=== PATIENT | female | born 1935 | race Caucasian/White ===

== ENCOUNTER 2017-10-29 07:50 | Observation (INO) | payer MEDICARE, OTHER ==
--- NOTE | 2017-10-24 18:04 | MH ---
cc: Clayton Reilly MD DATE OF ADMISSION: 10/29/2017 DATE OF ADMISSION FOR SURGERY: 10/29/2017 ADMITTING DIAGNOSIS: Osteoarthritic degeneration, right knee, now being admitted for right total knee arthroplasty. 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 PAST MEDICAL HISTORY: The patient has a history of atrial fibrillation and flutter and currently takes metoprolol tartrate and lovastatin. PAST SURGICAL HISTORY: Anterior wall repair and radical hysterectomy. REVIEW OF SYSTEMS: Noncontributory. FAMILY HISTORY: Noncontributory. She does not smoke. Drinks alcohol occasionally. ALLERGIES: ALLERGIC TO DEMEROL. PHYSICAL EXAMINATION: GENERAL: I find an 82-year-old female well-developed, well-nourished, ____, complaining of pain in her right knee. VITAL SIGNS: Blood pressure 142/76, pulse 68 and regular, respirations 16, temperature 97.8, pulse oximetry 98 percent on room air. HEENT: Eyes, PERRL, EOMI. Ears, nose, mouth clear. NECK: Supple. LUNGS: Clear. HEART: Regular rate. ABDOMEN: Soft, positive bowel sounds, nontender. EXTREMITIES: Reveal the right knee to be tender with crepitance throughout range of motion. Neurovascularly intact to her toes. IMPRESSION: Severe painful osteoarthritic degeneration, right knee. PLAN: Admission for a right total knee arthroplasty today. She was given a prescription for postoperative pain control in the office. J. MD ROSALIO Lee/SALENA/ , 05:34 PM , 05:49 PM
[~2017-10-29 07:50] MED LIST: ASPI-183 PO; ASPI81TA23 PO; LOVA20TA PO; METO25TA3 PO; MULT1CHW33 PO; PROBCAP28 PO
[2017-10-29] MEDS ORDERED: CHLORHEXIDINE GLUCONATE 4% SOLN 120 ML BTL TOPICAL SCH (08:45)
[2017-10-29] MEDS ORDERED: VANCOMYCIN 1000 MG/NS 250 ML (for <70 kg) IV SCH ×2 (08:45)
[2017-10-29] MEDS ORDERED: DEXAMETHASONE SOD PHOS 20 MG/5 ML VIAL IV PUSH SCH (08:45)
[2017-10-29] MEDS ORDERED: ceFAZolin 2 GM PREMIX 50 ML IV SCH (08:45)
[2017-10-29] MEDS ORDERED: METOPROLOL TARTRATE 25 MG TAB PO PRN (09:00)
[2017-10-29] MEDS ORDERED: POVIDONE IODINE 5% (ANTISEPSIS KIT) 4 APPLICATIONS EACH NARE PRN (09:00)
[2017-10-29] MEDS ORDERED: SODIUM CHLORIDE 0.9% IV SCH ×2 (09:00→12:00)
[2017-10-29] MEDS ORDERED: LACTATED RINGER'S 1000 ML IV PRN (09:00)
[2017-10-29] MEDS ORDERED: CHLORHEXIDINE GLUCONATE 2 % 1 PACK (2 CLOTHS) TOPICAL PRN (09:00)
[2017-10-29] MEDS ORDERED: SODIUM CHLORID 0.9% 500 ML IV PRN (09:00)
[2017-10-29] MEDS ORDERED: BUPIVACAINE LIPOSO PF 1.3% INJ 20 ML, BUPIVACAINE PF 0.25% INJ 20 ML in SODIUM CHLORIDE... P-ARTICULR SCH (09:00)
[2017-10-29] MEDS ORDERED: TRANEXAMIC ACID IV SCH ×2 (09:00→12:00)
[2017-10-29 09:23] VITALS: PULSE 60
[2017-10-29] MEDS ORDERED: ceFAZolin INJ 1,000 MG VIAL ONE (09:51)
--- NOTE | 2017-10-29 10:36 | HHI.FF ---
Face to Face Verification Diagnosis: (1) Status post total right knee replacement Physical Therapy Gait training Knee: Total knee, Protocol: Right, Gait training, Full weight bearing Canvas Knee Splint: When in bed & 2 pillows btw thighs Nursing RN: 3 days/week x 2 weeks Dressing Changes: Do not change dressing I have seen patient Kathy Joyner on 10/29/17. My clinical findings support the need for the requested home health care services because: Limited ability to care for self High risk of falls I certify that my clinical findings support that this patient is homebound because: Unsteady gait/balance Clayton Reilly MD Oct 29, 2017 10:36
[2017-10-29] MEDS ORDERED: WALKER WHEELS/F1 MIS (10:38)
[2017-10-29] MEDS ORDERED: CPMMACHINE (10:39)
[2017-10-29] MEDS ORDERED: ADJUSTABLE COMM1 MIS (10:39)
[2017-10-29] MEDS ORDERED: MIDAZOLAM HCL 2 MG/2 ML VIAL ONE (10:40)
[2017-10-29] MEDS ORDERED: BUPIVACAINE LIPOSOME PF 1.3% 20 ML VIAL ONE (10:41)
[2017-10-29] MEDS ORDERED: NALOXONE HCL 0.4 MG/ML AMP IV PUSH PRN ×2 (10:45)
[2017-10-29] MEDS ORDERED: Post-op Orders (for Pharmacy) XX ONE (10:45)
[2017-10-29] MEDS ORDERED: diphenhydrAMINE HCL 50 MG/ML VIAL IV PUSH PRN (10:45)
[2017-10-29] MEDS ORDERED: TRANEXAMIC ACID INJ 0 MG in SODIUM CHLORIDE 0.9% INJ 100 ML IV SCH (10:45)
[2017-10-29] MEDS ORDERED: ACETAMINOPHEN 325 MG TAB PO PRN (10:45)
[2017-10-29] MEDS ORDERED: ONDANSETRON ODT 4 MG TAB PO PRN (10:45)
[2017-10-29] MEDS ORDERED: MORPHINE SULFATE 4 MG/ML INJ IV PUSH PRN (10:45)
[2017-10-29] MEDS ORDERED: ACETAMINOPHEN 1000 MG/100 ML 100 ML IV ONE (10:45)
[2017-10-29] MEDS ORDERED: GLYCOPYRROLATE 1 MG/5 ML SYRINGE IV PUSH ONE (12:00)
[2017-10-29] MEDS ORDERED: ONDANSETRON HCL 4 MG/2 ML VIAL IV PUSH ONE (12:00)
[2017-10-29] MEDS ORDERED: NEOSTIGMINE 5 MG/5 ML SYRINGE IV PUSH ONE (12:00)
[2017-10-29] MEDS ORDERED: ROCURONIUM INJ 50 MG/5 ML SYRINGE IV PUSH ONE (12:00)
[2017-10-29] MEDS ORDERED: LACTATED RINGER'S 1000 ML INJ 1,000 ML IV ONE (12:00)
[2017-10-29] MEDS ORDERED: PHENYLEPH/NS 1000 MCG/10 ML SYR IV ONE (12:00)
[2017-10-29] MEDS ORDERED: ePHEDrine/NS 25 MG/5 ML SYRINGE IV ONE (12:00)
[2017-10-29] MEDS ORDERED: PROPOFOL 200 MG/20 ML AMP IV ONE (12:00)
[2017-10-29] MEDS ORDERED: LIDOCAINE HCL 1% PF 5 ML SYRINGE OTHER ONE (12:00)
--- NOTE | 2017-10-29 13:54 | HHI.PR ---
Immediate Post Op Note Procedure Date: Oct 29, 2017 Pre Op Diagnosis: Osteoarthritic degeneration, right knee Post Op Diagnosis: Osteoarthritic degeneration, right knee Surgeon: Clayton Reilly MD Wardrobe Consultant(s): Aleida RENDON Procedure: Right Total Knee Arthroplasty Complications: none Estimated blood loss: 100cc Anesthesia: General Drains: None IVF Urinary Output (mLs): 0 (no sharpe) Tourniquet time (min at mmHg) 41 mins at 300mmHg Patient to: SDS Patient Condition: Good Implant/Devices: SEE IMPLANT LOG (if applicable) Date/Time of Procedure: SEE SURGICAL CARE RECORD Aleida Brooks Oct 29, 2017 13:54
[2017-10-29] MEDS ORDERED: DO NOT ADM ANY ANTICOAGULANT DRUGS PRN (13:57)
[2017-10-29] MEDS: LACTATED RINGER'S 1000 ML INJ 1,000 ML IV SCH (14:05)
[2017-10-29] MEDS ORDERED: *morphine SULFATE 4 MG/ML PERIprocedure ONLY ONE (14:10)
--- NOTE | 2017-10-29 14:42 | RADRPT ---
EXAM DATE: 10/29/2017 2:35 PM EDT AGE/SEX: 82 years / Female INDICATIONS: Post op total right knee CLINICAL DATA: This is the patient's initial encounter. Patient reports that signs and symptoms have been present for 1 day and indicates a pain score of Nonresponsive. MEDICAL/SURGICAL HISTORY: Non-responsive. . right knee COMPARISON: No prior exams available for comparison. FINDINGS: The patient is status post total knee replacement. The prosthetic components appear well placed. Ther e are some hypertrophic change at the anterior superior aspect of the patella. CONCLUSION: Good placement of a total knee prosthesis. Electronically signed by: Glenn Valente MD 10/29/2017 2:40 PM EDT
--- NOTE | 2017-10-29 14:50 | MP ---
cc: Clayton Reilly MD DATE OF OPERATION: 10/29/2017 DATE OF SURGERY: 10/29/2017. PREOPERATIVE DIAGNOSIS: Osteoarthritic degeneration, right knee. POSTOPERATIVE DIAGNOSIS: Osteoarthritic degeneration, right knee. PROCEDURE PERFORMED: Right total knee arthroplasty using Consensus components, size 3 femur, 2 tibia, 2 patella with a size 10 insert and 2 batches of DePuy cement. SURGEON: Dr. Melba MD ENVIRONMENTAL COORDINATOR: JUSTICE Montero. ANESTHESIA: General intubation and block. PROCEDURE: After successful induction of anesthesia, the patient is placed on the operating room table in the supine position. The knee is prepped and draped in the usual manner. A tourniquet is inflated at the upper thigh and set to 300 mmHg pressure after exsanguination of the lower extremity. A longitudinal incision is made extending from 3 inches proximal to the superior pole of the patella, across the patella in longitudinal fashion, and down past the insertion of the tibial tubercle into the proximal tibia. The incision is carried down through subcutaneous tissue along the medial aspect of the patella and retinaculum, down through the capsule to expose the knee joint. The patella and patellar tendon are freed up enough to allow the patella to be inverted and retracted off the lateral side of the knee joint. The knee joint is left exposed. Small osteophytes are removed. All soft tissue is removed to allow proper position of the femoral and tibial cutting jig guide. The first femoral jig is then inserted along the distal end of the femur after first measuring to decide whether this is a small, medium, or large component. The notch is then drilled and the tibial cutting guide inserted into the femoral cutting guide, along with the ankle brace to allow for proper measurement of the tibial cutting surface that needed to be resected. Pins are inserted into the tibial cutting jig and femoral cutting jig to hold them in place. An oscillating saw is then used to resect the surface of the tibia. The surface of the tibia is then completely removed using sharp and blunt dissection. The anterior and posterior cuts of the femur are then made as well using an oscillating saw through the cutting guide. All guides are then removed and the varus/valgus angulation cutting guide applied to the femur for proper measurement of the proper amount of valgus. The anterior cutting guide for the femur is then inserted at the anterior femoral cuts made. Next, the first block trial is inserted into the femur to allow for proper condyle drill holes to be made which are then made followed by removal of the bone between the condyles using an oscillating saw as well as the bone removed at the most posterior surface of the condyle. After this, this guide is removed and the chamfer cuts made using the chamfer cutting guide from both anterior and posterior. Next, the femoral trial is then inserted, the tibial surface reflected anterior to expose the tibial surface and a tibial stem guide is inserted after first measuring for a standard, standard plus, large, or large plus surface to be used. After the stem is impacted the trial tibial surface is applied followed by the trial meniscal components. After full range of motion is found with the appropriate length meniscal components varying the patella is prepared by resecting the posterior aspect of the patella using an oscillating saw, inserting a trial. The trial is then removed and the cruciate cutting guide applied using the bur to cut the cruciate cuts. After cruciate cuts are made all trials are removed. The wound is irrigated copiously with antibiotic solution and Water Pik and the actual components inserted into place using the aforementioned components, Consensus components, size 3 femur, 2 tibia, 2 patella with a size 10 insert and 2 batches of DePuy cement. After the cement has hardened and the components are found to have full range of motion with no instability, the tourniquet is deflated, total tourniquet time being 41 minutes at 300 mmHg pressure. Meticulous hemostasis achieved. The wound was irrigated copiously with antibiotic solution and 120 cc of a mixture of Exparel, normal saline and 0.25% Marcaine plain was inserted around the knee joint for extra pain control. The deep fascia was approximated with running #2 Quill and the subcutaneous tissue approximated using interrupted 3-0 Quill and 4-0 Monocryl followed by Prineo dressing, sterile dressing and knee immobilizer. No drain utilized. ESTIMATED BLOOD LOSS: 100 mL. COUNTS: Sponge and suture counts were correct. COMPONENTS UTILIZED: Consensus components, size 3 femur, 2 tibia, 2 patella with a size 10 insert and 2 batches of DePuy cement. The patient tolerated the procedure well and left the Operating Room in satisfactory condition. ADDENDUM: JUSTICE Montero, was present during the entire procedure to include patient positioning and the procedure. The medical necessity of a nurse practitioner and the director of first impressions was indicated in this case due to the surgical complexity of the case itself. During the surgical case, the medical or surgical instrument maker was working the back table while my surgical technologist JUSTICE was directly assisting me. J. MD ROSALIO Lee/BELLA , 01:31 PM , 02:49 PM
--- NOTE | 2017-10-29 15:07 | PD.CONS ---
HPI Service [facility] Hospitalists Consult Requested By Dr. Reilly - Orthopedic service Reason for Consult Assist with ongoing medical management Primary Care Physician Antoine Woodward Do, MD Diagnoses: History of Present Illness Written by Aruna Dennis, acting as scribe for Dr. Cheung on 10/29/17 at 14: 55. This is an 82-year-old female with past medical history significant for atrial fibrillation/flutter, dyslipidemia and severe osteoarthritis of the right knee who has tried and failed numerous attempts at conservative management of her right knee pain and underwent an elective left total knee replacement surgery performed by Dr. Reilly. Hospitalist services have been consulted for assistance with ongoing medical management. Patient seen and examined in PACU. At present, patient is crying and upset saying that her right knee still feels the same as before surgery. She also complains of having a dry mouth. She states she has been in her usual state of health prior to the surgery. She denies any recent illness, fever or chills. She denies any chest pain or shortness of breath. She denies any nausea, vomiting or abdominal pain. She denies any urinary difficulties, diarrhea or constipation. Review of Systems Except as stated in HPI: all other systems reviewed are Neg Past Family Social History Allergies: Coded Allergies: erythromycin base (Verified Allergy, Unknown, FAINT, WEAKNESS, 10/29/17) meperidine (Verified Adverse Reaction, Intermediate, CONFUSION, 10/29/17) Past Medical History Atrial fibrillation/flutter Dyslipidemia Severe osteoarthritis right knee Past Surgical History Tonsillectomy Anterior wall repair and radical hysterectomy Reported Medications Multi Adult Gummies (Multiple Vitamins W/ Minerals) 200 Mcg Chw 2 Chew PO DAILY Probiotic Daily (Probiotic Product) 5 Billion Cell Cap 1 Cap PO DAILY Lovastatin 20 Mg Tab 20 Mg PO HS Aspirin EC (Aspirin) 81 Mg Tabdr 81 Mg PO DAILY HOLD FOR SURGERY Aspirin 325 Mg Tab 325 Mg PO DAILY TAPER TO 81 MG THEN OFF BOTH FOR SURGERY Metoprolol Tartrate 25 Mg Tab 12.5 Mg PO BID Active Ordered Medications Current Medications Medications (Trade) Dose Ordered Sig/Ladarius Route Start Time Stop Time Status Last Admin (Hibiclens 4% Top Soln) 1 applic ONCE TOPICAL 10/29/17 08:45 11/01/17 08:44 10/29/17 08:45 (Decadron Inj) 10 mg DEPUTY COMMISSIONER IV PUSH 10/29/17 08:45 10/29/17 09:10 Cefazolin Sodium/ Dextrose 50 ml @ 100 mls/hr DEPUTY COMMISSIONER IV 10/29/17 08:45 11/01/17 08:44 10/29/17 11:55 Vancomycin HCl 1000 mg/Sodium Chloride 250 ml @ 250 mls/hr DEPUTY COMMISSIONER IV 10/29/17 08:45 11/01/17 08:44 10/29/17 09:37 Tranexamic Acid 658 mg/Sodium Chloride 106.58 ml @ 200 mls/ hr ONCE IV 10/29/17 09:00 10/29/17 15:00 10/29/17 11:55 Tranexamic Acid 658 mg/Sodium Chloride 106.58 ml @ 200 mls/ hr ONCE IV 10/29/17 12:00 10/29/17 16:00 10/29/17 14:18 Bupivacaine Liposome 20 ml/ Bupivacaine HCl 20 ml/Sodium Chloride 120 ml @ 240 mls/hr ONCE P-ARTICULR 10/29/17 09:00 10/29/17 15:00 Lactated Ringer's 1,000 ml @ 30 mls/hr Q24H PRN IV 10/29/17 09:00 11/01/17 08:59 10/29/17 08:45 Sodium Chloride 500 ml @ 30 mls/hr [id number] PRN IV 10/29/17 09:00 11/01/17 08:59 (Lopressor) 25 mg DEPUTY COMMISSIONER PRN PO 10/29/17 09:00 11/01/17 08:59 (Betadine 5% Antisepsis Kit) 1 applic DEPUTY COMMISSIONER PRN EACH NARE 10/29/17 09:00 11/01/17 08:59 10/29/17 08:45 (Chlorhexidine 2% Cloth) 3 pack DEPUTY COMMISSIONER PRN TOPICAL 10/29/17 09:00 11/01/17 08:59 10/29/17 08:35 Lactated Ringer's 1,000 ml @ 80 mls/hr [id number] IV 10/29/17 10:31 10/29/17 14:05 Cefazolin Sodium 1000 mg/Sodium Chloride 100 ml @ 200 mls/hr Q6H IV 10/29/17 10:45 10/29/17 23:14 UNV (Wheeler 7.5-325 Mg) 1 tab Q4H PRN PO 10/29/17 10:45 (Wheeler 7.5-325 Mg) 2 tab Q4H PRN PO 10/29/17 10:45 (Tylenol) 650 mg Q6H PRN PO 10/29/17 10:45 (Theragran M Tab) 1 tab BID PO 10/30/17 21:00 12/29/17 20:59 (Zofran Odt) 4 mg Q6H PRN PO 10/29/17 10:45 (Colace) 100 mg BID PO 10/30/17 21:00 (Restoril) 15 mg HS PRN PO 10/29/17 21:00 (Bacitracin Oint Packet) 0.9 gm UNSCH X1 PRN TOP 10/31/17 10:15 11/02/17 10:14 (Narcan Inj) 0.4 mg UNSCH PRN IV PUSH 10/29/17 10:45 (Benadryl Inj) 25 mg Q6H PRN IV PUSH 10/29/17 10:45 (Eliquis) 2.5 mg BID PO 10/29/17 21:00 UNV (Morphine Inj) 2 mg Q3H PRN IV PUSH 10/29/17 10:45 Family History Mother, CVA Social History Patient has remote history of tobacco use in her 30s. She reports rare alcohol consumption. She denies any illicit drug use Physical Exam Vital Signs Vital Signs Date Time Temp Pulse Resp B/P (MAP) Pulse Ox O2 Delivery O2 Flow Rate FiO2 10/29/17 14:09 Nasal Cannula 3 10/29/17 14:00 63 12 145/74 (97) 99 Simple Mask 6 10/29/17 13:53 97.0 66 15 143/65 (91) 98 Simple Mask 6 10/29/17 09:23 60 10/29/17 09:23 98 Nasal Cannula 2 10/29/17 08:15 98.6 60 16 154/72 (99) 99 Physical Exam GENERAL: This is a well-nourished, well-developed female patient, in no apparent distress. Somnolent. Oriented x 3. SKIN: No rashes, ecchymoses or lesions. Cool and dry. HEAD: Atraumatic. Normocephalic. No temporal or scalp tenderness. EYES: Pupils equal round and reactive. Extraocular motions intact. No scleral icterus. No injection or drainage. ENT: Nose without bleeding or purulent drainage. Throat without erythema, tonsillar hypertrophy or exudate. Uvula midline. Airway patent. NECK: Trachea midline. No lymphadenopathy. Supple, nontender, no meningeal signs. CARDIOVASCULAR: Regular rate and rhythm without murmurs, gallops, or rubs. RESPIRATORY: Clear to auscultation. Breath sounds equal bilaterally. No wheezes , rales, or rhonchi. GASTROINTESTINAL: Abdomen soft, non-tender, nondistended. No hepato-splenomegaly , or palpable masses. No guarding. MUSCULOSKELETAL: Extremities without clubbing, cyanosis, or edema. No calf tenderness. Right knee in postop dressing, C/D/I, RLE currently in CPM. NEUROLOGICAL: Awake and alert. Cranial nerves II through XII grossly intact. Motor and sensory grossly within normal limits. No focal neurologic findings appreciated. Normal speech. Imaging Last Impressions Knee X-Ray 10/29/17 1031 Signed Impressions: CONCLUSION: Good placement of a total knee prosthesis. Assessment and Plan Assessment and Plan 82-year-old female with past medical history significant for atrial fibrillation /flutter, dyslipidemia and severe osteoarthritis of the right knee who has tried and failed numerous attempts at conservative management of her right knee pain and underwent an elective left total knee replacement surgery performed by Dr. Reilly. Hospitalist services have been consulted for assistance with ongoing medical management. Severe OA right knee, failed multiple attempts at conservative therapy, status post elective right total knee placement surgery -Management per orthopedic team -Pain management with bowel regimen -Monitor CBC for postoperative anemia of acute blood loss -Monitor wound healing -PT eval/tx per ortho service Atrial fibrillation, rate controlled Patient on aspirin only as anticoagulation at home -Continue patient on home dose of metoprolol 12.5 mg twice daily -Continue to monitor heart rate Dyslipidemia -Continue patient on statin therapy DVT prophylaxis -Eliquis 2.5 mg twice daily per Ortho Thank you very kindly for this consultation. We will continue to follow patient along with you. Discussed Condition With patient, nursing staff This note was transcribed by julia Dennis. I, Dr. Manuel Cheung personally performed the history, physical exam, and medical decision making; and confirmed the accuracy of the information in the transcribed note. Authenticated by Dr. Manuel Cheung on 10/29/17 at 15:22. Aruna Dennis Oct 29, 2017 15:07 Manuel Cheung MD Oct 29, 2017 15:23
[2017-10-29] MEDS ORDERED: PILL SPLITTER OTHER PRN (15:15)
[2017-10-29 20:00] VITALS: BP 136/64; PULSE 70; RESP 16; TEMP 97.8; O2SAT 99
[2017-10-29] MEDS: METOPROLOL TARTRATE 25 MG TAB PO SCH (20:56)
[2017-10-29] MEDS: PRAVASTATIN SOD 20 MG TAB PO SCH (20:57)
[2017-10-29] MEDS ORDERED: TEMAZEPAM 15 MG CAP PO PRN (21:00)
--- NOTE | 2017-10-29 22:55 | EKG ---
Date Performed: 10/29/2017 Time Performed: 08:44:21 PTAGE: 82 years EKG: SINUS BRADYCARDIA BORDERLINE ECG PREVIOUS TRACING : 02/07/2015 15.30 DOCTOR: Vikki Melgar Interpretating Date/Time 10/29/2017 22:51:55
[2017-10-30] VITALS (7 sets, daily range): BP systolic 48–153; BP diastolic 53–91; PULSE 56–103; RESP 16–17; TEMP 97.6–98.5; O2SAT 93–98
[2017-10-30] MEDS: ACETAMINOPHEN/HYDROcodone 325 MG/7.5 MG TAB PO PRN ×3 (04:01→22:17)
[2017-10-30 05:16] LABS: HEMATOCRIT 30.4 % (35.0-46.0); HEMOGLOBIN 10.1 GM/DL (11.6-15.3)
[2017-10-30 05:43] LABS: BICARBONATE 27.1 MEQ/L (21.0-32.0); CALCIUM 8.3 MG/DL (8.5-10.1); CREATININE 0.68 MG/DL (0.50-1.00)
[2017-10-30] MEDS: METOPROLOL TARTRATE 25 MG TAB PO SCH ×2 (08:47→20:16)
--- NOTE | 2017-10-30 10:59 | PD.ORT.PN ---
Subjective Subjective Remarks Pt feeling groggy today from pain meds. Objective Vitals Vital Signs Date Time Temp Pulse Resp B/P (MAP) Pulse Ox O2 Delivery O2 Flow Rate FiO2 10/30/17 04:45 98.5 70 16 114/53 (73) 94 10/30/17 00:10 97.6 72 16 123/55 (77) 96 10/29/17 20:00 97.8 70 16 136/64 (88) 99 10/29/17 19:34 97.3 96 Room Air 10/29/17 19:07 71 19 155/55 (88) 95 Room Air 10/29/17 17:30 69 20 148/63 (91) 98 Nasal Cannula 2 10/29/17 16:00 64 22 139/64 (89) 99 Nasal Cannula 2 10/29/17 15:00 57 19 122/57 (78) 97 Nasal Cannula 2 10/29/17 14:30 78 22 149/70 (96) 99 Nasal Cannula 3 10/29/17 14:15 67 17 137/60 (85) 98 Nasal Cannula 3 10/29/17 14:09 Nasal Cannula 3 10/29/17 14:00 63 12 145/74 (97) 99 Simple Mask 6 10/29/17 13:53 97.0 66 15 143/65 (91) 98 Simple Mask 6 I/O 10/29/17 10/29/17 10/29/17 10/30/17 10/30/17 10/30/17 07:00 15:00 23:00 07:00 15:00 23:00 Intake Total 140 ml 120 ml 720 ml 100 ml Output Total 100 ml Balance 40 ml 120 ml 720 ml 100 ml Intake Oral 120 ml 720 ml IV Total 100 ml Other 140 ml Output Estimated Blood Loss 100 ml # Voids 1 1 3 # Bowel Movements 0 Result Diagram: 10/30/17 0500 10/30/17 0500 Imaging Last 48 hours Impressions Knee X-Ray 10/29/17 1031 Signed Impressions: CONCLUSION: Good placement of a total knee prosthesis. Objective Remarks Sitting up in chair. Dressing dry and intact. NV intact to toes. No calf tenderness. Assessment & Plan Ortho Post Op Day #: 1 Problem List: Assessment and Plan PT, decrease amount of pain meds. Outside dressing change. Home possibly tomorrow. Clayton Reilly MD Oct 30, 2017 10:59
[2017-10-30] MEDS: LACTATED RINGER'S 1000 ML INJ 1,000 ML IV SCH (11:31)
--- NOTE | 2017-10-30 12:08 | HHI.PR ---
Subjective Remarks Follow-up for right TKA, Sesar fib. Patient reports feeling well today. She states her pain is fairly well controlled this morning. Denies any fever/chills , chest pain, palpitations, shortness of breath, abdominal pain, nausea/vomiting , or constipation. She complains of a sore throat and dry mouth from intubation. She has no other medical complaints at this time. Vital signs reviewed and stable. Objective Vitals Vital Signs Date Time Temp Pulse Resp B/P (MAP) Pulse Ox O2 Delivery O2 Flow Rate FiO2 10/30/17 11:08 56 110/53 (72) 10/30/17 08:00 98.5 63 16 48/ 98 10/30/17 04:45 98.5 70 16 114/53 (73) 94 10/30/17 00:10 97.6 72 16 123/55 (77) 96 10/29/17 20:00 97.8 70 16 136/64 (88) 99 10/29/17 19:34 97.3 96 Room Air 10/29/17 19:07 71 19 155/55 (88) 95 Room Air 10/29/17 17:30 69 20 148/63 (91) 98 Nasal Cannula 2 10/29/17 16:00 64 22 139/64 (89) 99 Nasal Cannula 2 10/29/17 15:00 57 19 122/57 (78) 97 Nasal Cannula 2 10/29/17 14:30 78 22 149/70 (96) 99 Nasal Cannula 3 10/29/17 14:15 67 17 137/60 (85) 98 Nasal Cannula 3 10/29/17 14:09 Nasal Cannula 3 10/29/17 14:00 63 12 145/74 (97) 99 Simple Mask 6 10/29/17 13:53 97.0 66 15 143/65 (91) 98 Simple Mask 6 I/O 10/29/17 10/29/17 10/29/17 10/30/17 10/30/17 10/30/17 07:00 15:00 23:00 07:00 15:00 23:00 Intake Total 140 ml 120 ml 720 ml 100 ml Output Total 100 ml Balance 40 ml 120 ml 720 ml 100 ml Intake Oral 120 ml 720 ml IV Total 100 ml Other 140 ml Output Estimated Blood Loss 100 ml # Voids 1 1 3 # Bowel Movements 0 Result Diagram: 10/30/17 0500 10/30/17 0500 Imaging Last Impressions Knee X-Ray 10/29/17 1031 Signed Impressions: CONCLUSION: Good placement of a total knee prosthesis. Objective Remarks GENERAL: Well-nourished, well-developed pleasant elderly female patient in [facility]. SKIN: Warm and dry. No rash. HEENT: Normocephalic. Atraumatic. Pupils equal and round. Mucous membranes pink and moist. CARDIOVASCULAR: Regular rate and rhythm. No murmur appreciated. RESPIRATORY: No accessory muscle use. Clear to auscultation. Breath sounds equal bilaterally. GASTROINTESTINAL: Abdomen soft, non-tender, nondistended. Normoactive bowel sounds x4. MUSCULOSKELETAL: No obvious deformities. Extremities without clubbing, cyanosis , or edema. RLE in surgical dressing, CDI. NEUROLOGICAL: Awake and alert. No obvious cranial nerve deficits. Motor grossly within normal limits. Moving all extremities spontaneously. Normal speech. PSYCHIATRIC: Appropriate mood and affect; insight and judgment normal. Procedures 10/29/17 -right total knee arthroplasty by Dr. Reilly Medications and IVs Current Medications Medications (Trade) Dose Ordered Sig/Ladarius Route Start Time Stop Time Status Last Admin (Hibiclens 4% Top Soln) 1 applic ONCE TOPICAL 10/29/17 08:45 11/01/17 08:44 10/29/17 08:45 (Decadron Inj) 10 mg PHOTONICS ENGINEERING TECHNICIAN IV PUSH 10/29/17 08:45 10/29/17 09:10 Cefazolin Sodium/ Dextrose 50 ml @ 100 mls/hr PHOTONICS ENGINEERING TECHNICIAN IV 10/29/17 08:45 11/01/17 08:44 10/29/17 11:55 Vancomycin HCl 1000 mg/Sodium Chloride 250 ml @ 250 mls/hr PHOTONICS ENGINEERING TECHNICIAN IV 10/29/17 08:45 11/01/17 08:44 10/29/17 09:37 Lactated Ringer's 1,000 ml @ 30 mls/hr Q24H PRN IV 10/29/17 09:00 11/01/17 08:59 10/29/17 08:45 Sodium Chloride 500 ml @ 30 mls/hr [id number] PRN IV 10/29/17 09:00 11/01/17 08:59 (Lopressor) 25 mg PHOTONICS ENGINEERING TECHNICIAN PRN PO 10/29/17 09:00 11/01/17 08:59 (Betadine 5% Antisepsis Kit) 1 applic PHOTONICS ENGINEERING TECHNICIAN PRN EACH NARE 10/29/17 09:00 11/01/17 08:59 10/29/17 08:45 (Chlorhexidine 2% Cloth) 3 pack PHOTONICS ENGINEERING TECHNICIAN PRN TOPICAL 10/29/17 09:00 11/01/17 08:59 10/29/17 08:35 Lactated Ringer's 1,000 ml @ 80 mls/hr [id number] IV 10/29/17 10:31 10/29/17 14:05 (Braham 7.5-325 Mg) 1 tab Q4H PRN PO 10/29/17 10:45 (Braham 7.5-325 Mg) 2 tab Q4H PRN PO 10/29/17 10:45 10/30/17 08:31 (Tylenol) 650 mg Q6H PRN PO 10/29/17 10:45 (Theragran M Tab) 1 tab BID PO 10/30/17 21:00 12/29/17 20:59 (Zofran Odt) 4 mg Q6H PRN PO 10/29/17 10:45 (Colace) 100 mg BID PO 10/30/17 21:00 (Restoril) 15 mg HS PRN PO 10/29/17 21:00 (Bacitracin Oint Packet) 0.9 gm UNSCH X1 PRN TOP 10/31/17 10:15 11/02/17 10:14 (Narcan Inj) 0.4 mg UNSCH PRN IV PUSH 10/29/17 10:45 (Benadryl Inj) 25 mg Q6H PRN IV PUSH 10/29/17 10:45 (Eliquis) 2.5 mg Q12H PO 10/30/17 13:00 (Morphine Inj) 2 mg Q3H PRN IV PUSH 10/29/17 10:45 ([facility] Nursing Information) ALL NURSING DEPARTME... UNSCH PRN .XX 10/29/17 13:57 10/30/17 13:56 (Pravachol) 20 mg HS PO 10/29/17 21:00 10/29/17 20:57 (Lopressor) 12.5 mg BID PO 10/29/17 21:00 10/30/17 08:47 (Pill Splitter) 1 ea UNSCH PRN OTHER 10/29/17 15:15 A/P Assessment and Plan 82-year-old female with history of atrial fibrillation/flutter, dyslipidemia, and severe osteoarthritis of the right knee who has tried and failed numerous attempts at conservative management of her right knee pain and underwent an elective left total knee replacement surgery performed by Dr. Reilly. Hospitalist services have been consulted for assistance with ongoing medical management. Severe Osteoarthritis R Knee, s/p Right TKA: surgery done 10/29/[address] Reilly -Continue management per orthopedic team -Pain control with norco prn, IV morphine prn -Post op Hgb 10.1, stable -PT eval, recommending [facility] -DVT prophylaxis with Eliquis per orthopedics Atrial fibrillation: chronic, rate controlled -Patient on aspirin only as anticoagulation at home; now on Eliquis for DVT prophylaxis per ortho -Continue patient on home dose of metoprolol 12.5 mg twice daily -Stable -Outpatient f/up with room service manager Dr. Powell Dyslipidemia -Continue patient on statin therapy DVT prophylaxis -Eliquis 2.5 mg bid per Ortho Discharge Planning Likely plan for d/c tomorrow with [facility]. Pam Coffman PA-C Oct 30, 2017 12:08
[2017-10-30] MEDS: APIXABAN 2.5 MG TABLET PO SCH (14:03)
[2017-10-30] MEDS: PRAVASTATIN SOD 20 MG TAB PO SCH (20:16)
[2017-10-30] MEDS: MULTIVITAMINS/MINERALS THERAPEUTIC TAB PO SCH (20:16)
[2017-10-30] MEDS: DOCUSATE SODIUM 100 MG CAP PO SCH (20:16)
[2017-10-31] MEDS: LACTATED RINGER'S 1000 ML INJ 1,000 ML IV SCH (00:01)
[2017-10-31] MEDS: APIXABAN 2.5 MG TABLET PO SCH (00:21)
[2017-10-31 00:25] VITALS: BP 127/57; PULSE 80; RESP 17; TEMP 98.2; O2SAT 98
[2017-10-31] MEDS: ACETAMINOPHEN/HYDROcodone 325 MG/7.5 MG TAB PO PRN (07:32)
[2017-10-31 08:00] VITALS: BP 103/63; PULSE 81; RESP 17; TEMP 98.9; O2SAT 95
--- NOTE | 2017-10-31 08:19 | PD.ORT.PN ---
Subjective Subjective Remarks Pt feeling better today but some discomfort. Objective Vitals Vital Signs Date Time Temp Pulse Resp B/P (MAP) Pulse Ox O2 Delivery O2 Flow Rate FiO2 10/31/17 00:25 98.2 80 17 127/57 (80) 98 10/30/17 20:05 98.5 72 17 132/63 (86) 97 10/30/17 16:00 98.0 95 16 114/58 (76) 93 10/30/17 11:08 56 110/53 (72) I/O 10/30/17 10/30/17 10/30/17 10/31/17 10/31/17 10/31/17 07:00 15:00 23:00 07:00 15:00 23:00 Intake Total 720 ml 100 ml 480 ml Balance 720 ml 100 ml 480 ml Intake Oral 720 ml 480 ml IV Total 100 ml # Voids 3 3 # Bowel Movements 0 0 Result Diagram: 10/31/17 0633 10/30/17 0500 Imaging Last 48 hours Impressions Knee X-Ray 10/29/17 1031 Signed Impressions: CONCLUSION: Good placement of a total knee prosthesis. Objective Remarks Sitting up in chair. Dressing dry and intact. NV intact to toes. No calf tenderness. Assessment & Plan Ortho Post Op Day #: 2 Problem List: Assessment and Plan Home in PM today with HHC and PT. To office next week. Clayton Reilly MD Oct 31, 2017 08:19
[2017-10-31] MEDS: MULTIVITAMINS/MINERALS THERAPEUTIC TAB PO SCH (08:25)
[2017-10-31] MEDS: METOPROLOL TARTRATE 25 MG TAB PO SCH (08:25)
[2017-10-31] MEDS: DOCUSATE SODIUM 100 MG CAP PO SCH (08:25)
[2017-10-31] MEDS ORDERED: BACITRACIN OINT 0.9 GM PKT TOP PRN (10:15)
--- NOTE | 2017-10-31 10:32 | HHI.PR ---
Subjective Remarks Follow-up visit for right total knee arthroplasty, Sesar cabrera Patient is seen and examined sitting up in chair with family at bedside. Reports today she is feeling well, has been walking. Plans for DC today, reports some constipation. She denies any fevers, chills, nausea, vomiting, headache or dizziness. Objective Vitals Vital Signs Date Time Temp Pulse Resp B/P (MAP) Pulse Ox O2 Delivery O2 Flow Rate FiO2 10/31/17 08:00 98.9 81 17 103/63 (76) 95 10/31/17 00:25 98.2 80 17 127/57 (80) 98 10/30/17 20:05 98.5 72 17 132/63 (86) 97 10/30/17 16:00 98.0 95 16 114/58 (76) 93 10/30/17 11:08 56 110/53 (72) I/O 10/30/17 10/30/17 10/30/17 10/31/17 10/31/17 10/31/17 07:00 15:00 23:00 07:00 15:00 23:00 Intake Total 720 ml 100 ml 480 ml Balance 720 ml 100 ml 480 ml Intake Oral 720 ml 480 ml IV Total 100 ml # Voids 3 3 # Bowel Movements 0 0 Result Diagram: 10/31/17 0633 10/30/17 0500 Imaging Last Impressions Knee X-Ray 10/29/17 1031 Signed Impressions: CONCLUSION: Good placement of a total knee prosthesis. Objective Remarks GENERAL: Well-nourished, well-developed pleasant elderly female patient in [facility], sitting up in chair. SKIN: Warm and dry. No rash. HEENT: Normocephalic. Atraumatic. Pupils equal and round. Mucous membranes pink and moist. CARDIOVASCULAR: Regular rate and rhythm. No murmur appreciated. RESPIRATORY: No accessory muscle use. Clear to auscultation. Breath sounds equal bilaterally. GASTROINTESTINAL: Abdomen soft, non-tender, nondistended. Normoactive bowel sounds x4. MUSCULOSKELETAL: No obvious deformities. Extremities without clubbing, cyanosis , or edema. Knee surgical incision well approximated open to air. NEUROLOGICAL: Awake and alert. No obvious cranial nerve deficits. Motor grossly within normal limits. Moving all extremities spontaneously. Normal speech. Procedures 10/29/17 -right total knee arthroplasty by Dr. Reilly A/P Assessment and Plan 82-year-old female with history of atrial fibrillation/flutter, dyslipidemia, and severe osteoarthritis of the right knee who has tried and failed numerous attempts at conservative management of her right knee pain and underwent an elective left total knee replacement surgery performed by Dr. Reilly. Hospitalist services have been consulted for assistance with ongoing medical management. Severe Osteoarthritis R Knee, s/p Right TKA: surgery done 10/29/[address] Reilly -Continue management per orthopedic team -Pain control with norco prn, IV morphine prn -Post op Hgb 10.1, stable -PT eval, recommending [facility] -DVT prophylaxis with Eliquis per orthopedics -Constipation, one-time dose of lactulose prior to leaving. Atrial fibrillation: chronic, rate controlled -Patient on aspirin only as anticoagulation at home; now on Eliquis for DVT prophylaxis per ortho -Continue patient on home dose of metoprolol 12.5 mg twice daily -Stable -Outpatient f/up with opal polisher Dr. Powell Dyslipidemia -Continue patient on statin therapy DVT prophylaxis -Eliquis 2.5 mg bid per Ortho Discussed with patient and RN. Discharge Planning Plans for discharge today with home health. Jose Antonio Segura Oct 31, 2017 10:31
[2017-10-31] MEDS ORDERED: LACTULOSE SYRUP 20 GM/30 ML CUP PO ONE (10:45)
[2017-10-31 12:00] VITALS: BP 92/43; PULSE 67; RESP 18; TEMP 98.5; O2SAT 97
== END 2017-10-31 13:04 | disposition home or self-care (01) ==
LOC: HSDC 07:50 → HSDI 10:35 → EDSTATUS 13:30 → N06B 19:56
PROVIDERS: ADMIT Surgery; ATTEND Surgery
DX: M17.11 Unilateral primary osteoarthritis, right knee (principal); R00.1 Bradycardia, unspecified; R68.2 Dry mouth, unspecified; E78.5 Hyperlipidemia, unspecified; I48.2 Chronic atrial fibrillation; Z87.891 Personal history of nicotine dependence; Z79.899 Other long term (current) drug therapy; Z79.82 Long term (current) use of aspirin
CPT/HCPCS: 01400; 27447; 73560; 80048; 85014; 85018; 86850; 86900; 86901; 93005; 94150; 96365; 97110; 97116; 97150; 97163; C1776; C9290; G0378; G8987; G8988; J0131; J0690; J1100; J2250; J2270; J2370; J2405; J2710; J3010; J3370; J7050; J7120; L1830